=== PATIENT | male | born 1955 | race Caucasian/White ===

== ENCOUNTER → 2017-10-22 | Outpatient (CLI) | payer OTHER ==
[~2017-10-22] MED LIST: ACETAMINOPHEN325 M1 PO; ADVAIR 250-501 EACH INH; ALBUTEROL INHAL17 GM IH; ALBUTEROL2.5 MG/0.1 INH; AMLODIPINE BESY10 MG PO; ASPIR 8181 MG PO; AZITHROMYCIN 2250 MG PO; CPAP MISCELL; DOXYCYCLINE 10100 MG PO; DUONEB 2.5-0.5 M3 ML INH; FLEXERIL PO; IBUPROFEN 200200 M1 PO; LEVOFLOXACIN PO; MEDROLDOSEPACK PO; MUCINEX TA600 MG/TA1 PO; MUCINEX600 MG PO; NEBULIZER MISCELL; NORCO 5-325 TA1 EACH PO; PERCOCET 5-3251 EACH PO; PREDNISONE 10 M10 MG PO; PREDNISONE 20 M20 M1 PO; PREDNISONE 20 M20 MG PO; PREDNISONE 5 MG5 M1 PO; PROVENTIL IH; PULMICORT0.25 MG/3 INH; ROBAXIN 750 MG750 M1 PO; ROBAXIN500 MG PO; SPIRIVA INH; SPIRIVA18 MCG; VENTOLIN HFA 1818 GM INH
== END ==
LOC: M.ULTRA 09:14
DX: K76.0 Fatty (change of) liver, not elsewhere classified (principal); R74.8 Abnormal levels of other serum enzymes

== ENCOUNTER → 2017-11-11 | Outpatient (CLI) | payer OTHER ==
[2017-11-11 07:45] LABS: CREATININE 0.9 mg/dL (0.6-1.3)
== END ==
LOC: M.MRI 11-05 07:30 → M.LAB 11-05 07:30 → M.MRI 11-05 08:30 → M.LAB 07:30 → M.MRI 08:30
PROVIDERS: Family Medicine
DX: N28.1 Cyst of kidney, acquired (principal); K76.89 Other specified diseases of liver; R93.2 Abnormal findings on diagnostic imaging of liver and biliary tract

== ENCOUNTER → 2018-06-11 | Outpatient (CLI) | payer OTHER ==
[2018-06-11 09:21] LABS: PROTIME 10.4 Seconds (9.20-11.50)
[2018-06-11 09:24] LABS: ALBUMIN 3.2 g/dL (3.4-5.0); DIRECT BILIRUBIN 0.1 mg/dL (<0.1-0.3); TOTAL BILIRUBIN 0.3 mg/dL (<0.1-1.0); TOTAL PROTEIN 6.9 g/dL (6.4-8.2)
[2018-06-11 09:35] LABS: % SATURATION 102 % (20-39); IRON 261 ug/dL (50-175)
[2018-06-11 19:10] LABS: IgG 707 mg/dL (700-1600); IgM 125 mg/dL (20-172)
[2018-06-12 02:08] LABS: HEPATITIS B SURFACE AG Negative (Negative)
[2018-06-12 14:11] LABS: CERULOPLASMIN 22.7 mg/dL (16.0-31.0)
== END ==
LOC: M.ULTRA 08:00
PROVIDERS: Physician Assistant
DX: K76.0 Fatty (change of) liver, not elsewhere classified (principal); R94.5 Abnormal results of liver function studies

== ENCOUNTER 2018-10-16 21:54 | Inpatient (IN) | payer OTHER ==
[~2018-10-16] VITALS: Ht 170.2 cm; Wt 99.8 kg
[2018-10-16 21:59] VITALS: BP 127/59
[2018-10-16] MEDS ORDERED: HYDROCODON-ACE1 EAC7 PO (22:04)
[2018-10-16 22:56] LABS: APTT 28.5 Seconds (25.0-31.3); CALCIUM 9.4 mg/dL (8.5-10.1); CREATININE 0.9 mg/dL (0.6-1.3); POTASSIUM 3.7 mmol/L (3.5-5.1); PROTIME 10.5 Seconds (9.20-11.50)
[2018-10-16 23:00] LABS: ALBUMIN 3.1 g/dL (3.4-5.0); TOTAL BILIRUBIN 0.9 mg/dL (<0.1-1.0)
[2018-10-16 23:07] LABS: HEMATOCRIT 49.8 % (42.0-52.0); HEMOGLOBIN 16.7 gm/dL (14.0-18.0); MCH 35.1 pg (26.0-34.0); MCHC 33.5 g/dL (28.0-37.0); MCV 104.9 fL (80.0-100.0); MPV 7.9 fl. (7.2-11.1); NUCLEATED RBCS 0 /100WBC; PLATELET COUNT* 214 thou/uL (150-400); RBC 4.74 mil/uL (4.50-6.00); RDW-CV 14.3 % (10.5-14.5); WBC 11.2 thou/uL (4.0-11.0)
[2018-10-16 23:24] LABS: ABSOLUTE LYMPHOCYTES 2.2 thou/uL (0.8-5.3); ABSOLUTE MONOCYTES 0.8 thou/uL (0.0-1.2); ABSOLUTE NEUTROPHILS 8.2 thou/uL (1.6-8.1); PLATELET ESTIMATE ADEQUATE
[2018-10-17 00:36] LABS: URINE BILIRUBIN NEGATIVE (Negative); URINE BLOOD NEGATIVE (Negative); URINE CLARITY CLEAR; URINE COLOR YELLOW; URINE GLUCOSE-RANDOM NEGATIVE (Negative); URINE KETONES NEGATIVE (Negative); URINE LEUKOCYTES NEGATIVE (Negative); URINE NITRITE NEGATIVE (Negative); URINE PROTEIN NEGATIVE (Negative); URINE SPECIFIC GRAVITY <= 1.005 (1.005-1.030); URINE UROBILINOGEN 0.2 E.U./dl (0.2-1.0)
--- NOTE | 2018-10-17 01:49 | NUR ---
Boarding discussed with patient, understanding verbalized. Pt transferred into inpatient bed. Pt denies needs at this time. Will continue to monitor.
[2018-10-17 05:18] VITALS: BP 128/60
[2018-10-17 09:15] VITALS: BP 130/55
[2018-10-17 13:18] VITALS: BP 152/69
[2018-10-17 17:24] VITALS: BP 137/61
[2018-10-17 20:00] VITALS: BP 160/82
[2018-10-17 20:30] VITALS: BP 169/76
--- NOTE | 2018-10-17 22:48 | NUR ---
2000 ALERT AND ORIENTED X 4 MALE PATIENT TO ROOM 106 BY BED FROM ED IN STABLE CONDITION. ADMISSION ROUTINES IN PROGRESS. VITAL SIGNS STABLE. ORDERED TREATMENTS AND MEDICATIONS PROVIDED. AWAITING I&D CONSULTATION. CONTINUE TO MONITOR.
--- NOTE | 2018-10-18 00:38 | NUR ---
Photos of areas of vasculitis placed on chart. Noted in photo of right le a dressing clean and dry over Bx site. Noted in photo close-up right foot a single small dry lesion over medial ankle. Patient states there was a blister at this site that he popped twice. This occured prior to the vasculitis appearing.
--- NOTE | 2018-10-18 04:38 | NUR ---
PATIENT HAS REMAINED ALERT AND ORIENTED X 4 THROUGHOUT THE SHIFT AND RESTING QUIETLY ON HOURLY ROUNDS. MEDICATED FOR PAIN X 1 THIS SHIFT TO GOOD EFFECT. UP INDEPENDENTLY IN THE ROOM. NO CHANGE IN VASCULITIS. CONTINUE TO MONITOR.
[2018-10-18 05:38] LABS: GLYCOHEMOGLOBIN (HGB A1C) 5.2 % (4.8-5.6)
[2018-10-18 07:56] LABS: ABSOLUTE LYMPHOCYTES 1.4 thou/uL (0.8-5.3); ABSOLUTE MONOCYTES 1.1 thou/uL (0.0-1.2); ABSOLUTE NEUTROPHILS 13.9 thou/uL (1.6-8.1); BASOPHILS 0.2 %; HEMATOCRIT 41.6 % (42.0-52.0); LYMPHOCYTES 8.6 %; MCH 34.7 pg (26.0-34.0); MCHC 33.6 g/dL (28.0-37.0); MCV 103.5 fL (80.0-100.0); MONOCYTES 6.6 %; MPV 8.5 fl. (7.2-11.1); NUCLEATED RBCS 0 /100WBC; PLATELET COUNT* 204 thou/uL (150-400); POLYS 84.6 %; RBC 4.02 mil/uL (4.50-6.00); RDW-CV 13.9 % (10.5-14.5); WBC 16.4 thou/uL (4.0-11.0)
[2018-10-18 08:00] VITALS: BP 146/75
[2018-10-18 08:15] LABS: ALBUMIN 2.6 g/dL (3.4-5.0); CALCIUM 8.8 mg/dL (8.5-10.1); CREATININE 0.6 mg/dL (0.6-1.3); POTASSIUM 3.9 mmol/L (3.5-5.1); TOTAL BILIRUBIN 0.9 mg/dL (<0.1-1.0); TOTAL PROTEIN 6.2 g/dL (6.4-8.2)
--- NOTE | 2018-10-18 16:05 | NUR ---
ASSUMMED CARE OF PT AT 0730, PT ALERT AND ORIENTED, UP INDEPENDENTLY TO BATHROOM, TAKING FOOD AND FLUIDS WELL, PETICHIA NOTED ON BILATERAL LEGS, STOMACH, CHEST AND LOWER BACK AROUND WAISTBAND AREA, ALSO RED RINGS NOTED ON PTS LEGS WHERE TOP OF SOCKS HAD BEEN, DRESSING TO BIOPSY SITE INTACT, IV SALINE LOCK PATENT IN RIGHT FA, DENIES NEED FOR PAIN MEDICATION, HOURLY ROUNDING COMPLETED, ASSESSMENT COMPLETE, WILL CONTINUE TO MONITOR.
[2018-10-18 16:30] VITALS: BP 132/75
[2018-10-18 19:42] VITALS: BP 144/71
[2018-10-19 03:06] LABS: HEPATITIS B SURFACE AG Negative (Negative)
--- NOTE | 2018-10-19 05:11 | NUR ---
PATIENT HAS REMAINED ALERT AND ORIENTED X 4 THROUGHOUT THE SHIFT AND RESTING WELL ON HOURLY ROUNDS. UP INDEPENDENTLY IN ROOM. LE'S ELEVATED ON PILLOW WHEN IN BED. MEDICATED X 1 FOR RIGHT ANKLE PAIN TO GOOD EFFECT. VITAL SIGNS STABLE. CONTINUE TO MONITOR. NO OBSERVABLE CHANGE IN VASCULITIS. CONTINUE TO MONITOR.
[2018-10-19 08:00] VITALS: BP 155/87
--- NOTE | 2018-10-19 09:21 | CON ---
[address] [address] CONSULTATION Name: CAROLYN HAINES Room: [address] IN M.R.#: [id number] Admission: 10/17/18 Attend Phys: Eleazar Greenberg Discharge: Date of : 55 Report #: [id number] THIS REPORT FOR: //name// CC: Azul Lugo DATE OF SERVICE: 10/18/2018 INFECTIOUS DISEASE CONSULTATION ATTENDING PHYSICIAN: Ayush Lugo DO REASON FOR CONSULTATION: Purpuric lesion, legs and abdomen. HISTORY OF PRESENT ILLNESS: The patient is a 63-year-old white man admitted on the with a purpuric lesion in lower extremities in a rather linear distribution, but the most important fact is that he has lesions on his forearms and abdominal wall, chest. Most of these purpuric lesions are palpable, one of the lesions on the right leg was biopsied. The patient is on treatment with large dose steroids. The patient relates besides the skin lesions, he had arthralgias of the wrists, knees and ankles. No systemic symptoms. No history of tick exposure, though he does a lot of lawn mowing. PAST MEDICAL HISTORY: 1. COPD. 2. Abnormal liver function test. 3. Cigarette smoking. 4. Beer drinking. SOCIAL HISTORY: , one adopted child. MEDICATIONS AT HOME: Include amlodipine, budesonide nebulizer and CPAP. CURRENT MEDICATIONS: The patient is on treatment with enoxaparin, famotidine, amlodipine, budesonide, sodium phosphate one time, potassium and magnesium supplementation per protocol, methylprednisone 62.5 mg IV every 12 hours, p.r.n. ondansetron, magnesium/aluminum hydroxide, Benadryl, acetaminophen, hydrocodone. PHYSICAL EXAMINATION: GENERAL: A well-developed, overweight man, not toxic looking, afebrile since admission. VITAL SIGNS: Temperature 97.8, pulse 75, respirations 16, BP 169/76. HEENMT: Head: Normocephalic, atraumatic. Pupils reactive. Mouth: No thrush. NECK: Supple. LUNGS: Clear. HEART: S1, S2. No gallop [place] [address] CONSULTATION Name: CAROLYN HAINES Room: [address] IN [facility]#: [id number] Admission: 10/17/18 Attend Phys: Eleazar Greenberg Discharge: Date of : 55 Report #: [id number] ABDOMEN: Soft, no masses or megaly. GENITALIA AND RECTAL: Deferred. EXTREMITIES: Reveal purpuric lesions seen in a linear distribution most of them, though some of the lesions are isolated and palpable. SKIN: On the abdominal wall and forearm the patient has also some palpable purpuric lesions. NEUROLOGIC: Grossly within normal limits. LABORATORY DATA: Sodium low at 131, glucose mildly elevated at 125. Alkaline phosphatase 143, SGPT 150, albumin 3.1. Hemoglobin A1c 5.2%. Estimated average sugars 103. WBC 11.2, hemoglobin 16.7. MCV elevated at 104.9, indicating underlying liver condition, folate, B12 deficiency or alcohol use, interfering with cell maturation. Sedimentation rate 5 mm per hour. CRP 43.7 mg/L. ASO titer negative. ANCA titers pending. Urinalysis negative. Venous ultrasound of the lower extremities, no evidence of DVT. Elbow x-ray revealed soft tissue swelling posterior medial elbows bilateral as well as small right elbow joint effusion and evidence of chondrocalcinosis. ASSESSMENT: 1. Palpable purpura, question Henoch-Schonlein purpura. 2. Purpuric lesions, legs, secondary to pressure sacs and boots. 3. Palpable purpura, status post biopsy. 4. Abnormal LFTs secondary to alcohol use versus above condition. 5. Elevation of MCV, question B12 - folate - liver disease versus alcohol interfering with maturation of red blood cells. SUGGESTIONS: Recommend brief course of steroids for treatment of joint aches and pains. Purpuric lesions should disappear possibly spontaneously unless some other underlying condition. Obviously, the answer will be pending biopsy results. No indication for antibiotic. The patient could be discharged at any point in time. Dr. Lugo, thank you for requesting my suggestions. <ELECTRONICALLY SIGNED> By: Pradeep Rey MD 10/19/18 [id number] Rey MD /nt
[2018-10-19] MEDS ORDERED: PREDNISONE 10 M10 MG PO (11:03)
[2018-10-19 11:12] VITALS: BP 155/87
--- NOTE | 2018-10-19 11:44 | NUR ---
PT DISCHARGED AND LEFT UNIT AT 1141 WITH NURSING STAFF AND SPOUSE. PT STABLE UPON DISCHARGE. IV OUT. PAPER PRESCRIPTION AND CARE NOTES GIVEN. PERSONAL ITEMS SENT WITH PT.
[2018-10-21 16:11] LABS: ANA INTERPRETATION Negative (Negative)
== END 2018-10-19 11:41 | disposition home or self-care (01) | DRG 607 ==
LOC: M.ERS 21:54 → M.TBA-ER 10-17 01:08 → M.ORTHSURG 10-17 01:08
PROVIDERS: Emergency Medicine; Internal Medicine; Nurse Practitioner Family; ADMIT Internal Medicine
PROC: 0JBN3ZX Excision of Right Lower Leg Subcutaneous Tissue and Fascia, Percutaneous Approach, Diagnostic (ICD-10-PCS; principal; 2018-10-17)
DX: L95.9 Vasculitis limited to the skin, unspecified (principal); J44.1 Chronic obstructive pulmonary disease with (acute) exacerbation; E87.1 Hypo-osmolality and hyponatremia; E44.1 Mild protein-calorie malnutrition; M19.90 Unspecified osteoarthritis, unspecified site; G47.33 Obstructive sleep apnea (adult) (pediatric); F17.210 Nicotine dependence, cigarettes, uncomplicated; M25.50 Pain in unspecified joint; R73.9 Hyperglycemia, unspecified; I10 Essential (primary) hypertension; D69.2 Other nonthrombocytopenic purpura; K76.0 Fatty (change of) liver, not elsewhere classified; M25.522 Pain in left elbow; M25.521 Pain in right elbow; Z87.01 Personal history of pneumonia (recurrent); Z79.899 Other long term (current) drug therapy; Z79.82 Long term (current) use of aspirin